=== PATIENT | female | born 1975 | race Caucasian/White ===

== ENCOUNTER 2023-11-25 04:17 | Day surgery (SDC) | payer OTHER ==
[2023-11-22 11:02] VITALS: BMI 22.3
[2023-11-25] MEDS ORDERED: MIDAZOLAM HCL 2 MG/2 ML SINGLE DOSE VIAL ONE (12:27)
[2023-11-25] MEDS ORDERED: oxyCODONE HCL 5 MG TABLET PO PRN (13:38)
[2023-11-25] MEDS ORDERED: ONDANSETRON 4 MG/2 ML VIAL IVPUSH PRN (13:38)
[2023-11-25] MEDS ORDERED: LACTATED RINGERS SOLUTION 1,000 ML IV SCH (13:45)
[2023-11-25] MEDS ORDERED: ACETAMINOPHEN INJECTION 100 ML ONE (14:23)
[2023-11-25] MEDS: ACETAMINOPHEN 1000 MG/100 ML BAG IVPB ONE (14:26)
[2023-11-25 15:22] VITALS: RESP 16; TEMP 97.8
[2023-11-25 16:25] VITALS: BP 110/60; PULSE 56
== END 2023-11-25 17:02 | disposition home or self-care (01) ==
LOC: JASU-SURG 04:17
PROVIDERS: ATTEND Obstetrics & Gynecology Obstetrics
PROC: 0UDB8ZZ Extraction of Endometrium, Via Natural or Artificial Opening Endoscopic (ICD-10-PCS; principal; 2023-11-25 12:30)
PROC: 0U5B8ZZ Destruction of Endometrium, Via Natural or Artificial Opening Endoscopic (ICD-10-PCS; 2023-11-25 12:30)
DX: N92.0 Excessive and frequent menstruation with regular cycle (principal); D50.0 Iron deficiency anemia secondary to blood loss (chronic); N81.10 Cystocele, unspecified
CPT/HCPCS: 81025; 88305-TC; 94760; J0131